=== PATIENT | male | born 1950 | race African-American/Black ===

== ENCOUNTER 2022-07-08 16:18 | Emergency (ER) | payer OTHER ==
[~2022-07-08] VITALS: Ht 177.8 cm; Wt 81.0 kg
[2022-07-08 18:17] LABS: BASOPHILS % 0.8 % (0.0-2.0); EOSINOPHILS % 2.3 % (0.0-5.0); HEMATOCRIT. 26.6 % (42.0-52.0); HEMOGLOBIN. 8.6 g/dL (14.0-18.0); LYMPHOCYTES % 13.6 % (20.0-50.0); MEAN PLATELET VOLUME 7.9 fl (7.4-10.4); NEUTROPHILS % 71.3 % (40.0-76.0); PLATELET 164 x1000/uL (130-400); RED CELL DISTRIBUTION WIDTH 18.2 % (11.6-14.6)
[2022-07-08 18:22] LABS: CHLORIDE 100 mEq/L (98-107)
[2022-07-08] MEDS ORDERED: ASPIRIN 81MG TABLET PO ONE (21:15)
[2022-07-08] MEDS ORDERED: FUROSEMIDE 40MG/4ML VIAL IV ONE (21:15)
[2022-07-08] MEDS ORDERED: ALBUTEROL (0.083%) 2.5MG/3ML NEB HHN ONE (22:45)
[2022-07-08 23:39] VITALS: BP 169/87
== END 2022-07-08 23:43 | disposition short-term general hospital (02) ==
LOC: ER 16:18 → EDBEDREQTM 19:50 → EDBEDREQ 19:50 → ER 23:43 → CANBEDREQ 07-09 00:21
DX: I11.0 Hypertensive heart disease with heart failure (principal); I50.9 Heart failure, unspecified; E11.9 Type 2 diabetes mellitus without complications; E78.00 Pure hypercholesterolemia, unspecified; Z88.8 Allergy status to other drugs, medicaments and biological substances; Z20.822 Contact with and (suspected) exposure to COVID-19
CPT/HCPCS: 36415; 71045; 80053; 82962; 83880; 84484; 85025; 87426; 93005; 94640; 96374; 99285; C9803; J1940; Z7610

== ENCOUNTER 2022-08-19 04:32 | Emergency (ER) | payer MEDICARE, OTHER ==
[~2022-08-19] VITALS: Ht 185.4 cm; Wt 86.0 kg
[2022-08-19] MEDS ORDERED: OXYCODONE HCL/ACETAMINOPHEN 5/325MG TABLET PO ONE (05:15)
[2022-08-19] MEDS ORDERED: KETOROLAC 60MG/2ML VIAL IM ONE (05:30)
[2022-08-19] MEDS ORDERED: MORPHINE SULFATE 4 MG/ML CPJ (NOT FOR IM USE) IV STA (09:04)
[2022-08-19] MEDS ORDERED: MORPHINE SULFATE 10 MG/ML CPJ IM ONE (11:15)
[2022-08-19] MEDS ORDERED: CARVEDILOL 12.5MG TABLET PO ONE (13:00)
[2022-08-19 14:24] VITALS: BP 164/60
== END 2022-08-19 14:33 | disposition short-term general hospital (02) ==
LOC: ER 04:56 → CANBEDREQ 11:39 → ER 14:33
DX: K08.539 Fractured dental restorative material, unspecified (principal); E11.22 Type 2 diabetes mellitus with diabetic chronic kidney disease; I12.0 Hypertensive chronic kidney disease with stage 5 chronic kidney disease or end stage renal disease; N18.6 End stage renal disease; Z20.822 Contact with and (suspected) exposure to COVID-19
CPT/HCPCS: 73030; 73060; 73090; 87426; 96372; 99285; C1893; C9803; J1885; J2270